=== PATIENT | female | born 1975 | race Hispanic/Latino ===

== ENCOUNTER 2022-01-20 20:22 | Emergency (ER) | payer OTHER, MEDICAID, SELFPAY ==
--- NOTE | ~2022-01-20 | XR_ITS ---
XR hip LT min 3V w AP pelvis 01/20/2022 21:09 INDICATION: Hip pain. Status post recent fall. PROCEDURE: AP pelvis and 3 views left hip COMPARISON: No prior studies for comparison. FINDINGS: Fracture, dislocation or subluxation is not identified. The soft tissues appear within norm al limits. No foreign bodies are identified. IMPRESSION: 1: NO ACUTE BONE OR JOINT ABNORMALITY IDENTIFIED. Reviewed, dictated and finalized at location A. RAM/MUSIC DIRECTOR
--- NOTE | ~2022-01-20 | XR_ITS ---
XR shoulder RT min 2V 01/20/2022 21:08 Indication: Right shoulder pain Procedure: 4 views right shoulder Comparison: No prior studies for comparison. Findings: No fracture, subluxation or dislocation. There is anatomic alignment. No soft tissue abnorm ality. There are coarse infiltrates of the right upper lobe. There is a large bleb in the right lower thorax, partially visualized. Impression: 1: No acute bone or joint abnormality. 2: Coarse infiltrates of the right upper lung, suspicious for pneumonia. Large bleb noted in the rig ht lower thorax, consistent with emphysema. Reviewed, dictated and finalized at location A. STANT PROFESSOR OF CHEMISTRY Impression: 1: No acute bone or joint abnormality. 2: Coarse infiltrates of the right upper lung, suspicious for pneumonia. Large bleb noted in the right lower thorax, consistent with emphysema.
[2022-01-20 20:25] VITALS: BP 149/75; PULSE 84; RESP 16; TEMP 36.9; O2SAT 98
--- NOTE | 2022-01-20 20:55 | ED.FALL ---
HPI - Fall General Chief Complaint: Fall Stated Complaint: R arm/side pain Time Seen by Provider: 01/20/22 20:47 History of Present Illness HPI Narrative: Patient is a 46-year-old female here for evaluation of right shoulder and left leg pain after a fall today. Patient states that she was walking at work and slipped on an object on the ground, causing her left leg to sit under her and her to land on her right shoulder. No head injury or loss of consciousness. This happened about 3 hours prior to arrival to ED, patient has been able to walk since the accident. She has not taken any medicine for pain. No incontinence or retention of bowel or bladder, saddle anesthesia, numbness or tingling anywhere. Related Data Allergies Allergy/AdvReac Type Severity Reaction Status Date / Time No Known Allergies Allergy Verified 01/20/22 21:11 Review of Systems Review of Systems: Gen.: Denies fevers or chills Eyes: Denies eye pain or visual change ENT: Denies congestion Respiratory: Denies shortness of breath or cough CV: Denies chest pain or palpitations GI: Denies abdominal pain nausea, emesis or diarrhea denies burning, urgency, frequency or hematuria Musculoskeletal: Reports right shoulder and left hip pain. Neuro: Denies numbness, tingling, weakness or focal weakness Skin: Denies rash Except as documented, all other systems reviewed and negative Exam Narrative: APPEARANCE: Well appearing, no pain in distress, well-nourished. Head: Normocephalic and atraumatic. EYES: PERRLA/EOMI, conjunctivae clear NOSE: No nasal drainage EARS: External ear normal in appearance THROAT: Oropharynx is clear. Mucous membranes are moist. NECK: Supple. No adenopathy, no masses. RESPIRATORY: Airway patent, respirations nonlabored. Clear to auscultation bilaterally, no rales, rhonchi, wheezing. CARDIOVASCULAR: Regular rate and rhythm without murmurs, rubs, or gallops. ABDOMINAL: Normoactive bowel sounds. Soft, nontender, nondistended. No rebound tenderness or guarding. MUSCULOSKELETAL: No midline tenderness to C, T or L-spine. Tender to palpation along right humeral head. Tender to palpation along left lateral hip. NEURO: Normal speech. No focal neurologic deficits. SKIN: Skin is warm and dry. No rashes. PSYCHIATRIC: Normal affect/mood.. Course Vital Signs Vital signs: Vital Signs Temperature 98.4 F 01/20/22 20:25 Pulse Rate 84 01/20/22 20:25 Respiratory Rate 16 01/20/22 20:25 Blood Pressure 149/75 H 01/20/22 20:25 Pulse Oximetry 98 01/20/22 20:25 Oxygen Delivery Room Air 01/20/22 20:25 Temperature 98.4 F 01/20/22 20:25 Pulse Rate 84 01/20/22 20:25 Respiratory Rate 16 01/20/22 20:25 Blood Pressure 149/75 H 01/20/22 20:25 Pulse Oximetry 98 01/20/22 20:25 Oxygen Delivery Room Air 01/20/22 20:25 MDM - Fall MDM Narrative Medical decision making narrative: 46-year-old female here for evaluation of right shoulder and left hip pain after what sounds like a mechanical fall earlier today. Patient is nontoxic-appearing and has normal vital signs. She does have tenderness to palpation along her humeral head on the right side and in the left hip. She has been able to bear weight. 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 On reexamination, patient is complaining of a cough. Given her symptoms we will treat for pneumonia; she is stable and appropriate for discharge at this time. Encouraged PCP follow-up, we discussed return precautions and she voiced understanding. Discharge Plan Discharge Clinical Impression: Pain in right shoulder, Acute pain of left hip, Pneumonia Patient Disposition: Home, Self-Care Condition: Stable Instructions: Antibiotic Form, Pneumonia (ED) Additional Instructions: Las im?genes de rivera hombro, pierna y pelvis no mostraron fracturas agudas. En la imagen de rivera hombro, el radi?logo n
[2022-01-20] MEDS: IBUPROFEN 600 MG TABLET PO (21:22)
== END 2022-01-20 22:00 | disposition home or self-care (01) ==
PROVIDERS: Emergency Provider Physician Assistant
DX: S49.91XA Unspecified injury of right shoulder and upper arm, initial encounter (principal); S79.912A Unspecified injury of left hip, initial encounter; J18.9 Pneumonia, unspecified organism; W18.00XA Striking against unspecified object with subsequent fall, initial encounter
CPT/HCPCS: 73030; 73502; 99284; A9270